=== PATIENT | female | born 1930 | race Caucasian/White ===

== ENCOUNTER 2017-01-04 17:33 | Observation (INO) | payer MEDICARE ==
[2017-01-04] MEDS ORDERED: Atrovent 0.5MG NEBULE IH ONE (17:53)
[2017-01-04] MEDS ORDERED: solu-MEDROL 125 MG IV ONE (17:53)
[2017-01-04] MEDS ORDERED: Levofloxacin 500MG/100ML D5W 500 MG/100 ML BAG IV STA (17:59)
[2017-01-04] MEDS ORDERED: Sodium Chloride 0.9% 1000 ML 1,000 ML IV SCH (18:00)
--- NOTE | 2017-01-04 18:06 | ERPHSYRPT ---
- History of Present Illness Time Seen by Provider: 01/04/17 17:45 Source: patient Exam Limitations: clinical condition Patient Subjective Stated Complaint: states having sob since last night with coughing. denies fever Triage Nursing Assessment: ambulated to room. some sob noted. resp shallow. nonprod cough Physician History: PATIENT WITH A HISTORY OF COPD, HOME OXYGEN DEPENDENT AT NIGHT COMPLAINS OF DIFFICULTY BREATHING, DYSPNEA AND A NONPRODUCTIVE COUGH AFTER EXPOSURE TO INSECT SPRAY OUTSIDE OF HER HOME YESTERDAY. DENIES FEVER, CHILLS, CHEST PAIN. Timing/Duration: yesterday Activities at Onset: other (INSECT SPRAY OUTSIDE OF HOME) Severity of Dyspnea-Max: severe Severity of Dyspnea-Current: severe Possible Cause: occasional episodes Modifying Factors: Improves With: coughing, oxygen Associated Symptoms: cough International travel in last 2 weeks: No Allergies/Adverse Reactions: acetaminophen [From Vicodin] Allergy (Verified 01/04/17 17:55) albuterol [From Proventil] Allergy (Verified 01/04/17 17:55) albuterol sulfate [From Proventil] Allergy (Verified 01/04/17 17:55) cephalexin monohydrate [From Keflex] Allergy (Verified 01/04/17 17:55) chlorpheniramine [From Triaminic] Allergy (Verified 01/04/17 17:55) chlorpheniramine maleate [From Triaminic] Allergy (Verified 01/04/17 17:55) codeine [Codeine] Allergy (Verified 01/04/17 17:55) dextromethorphan HBr [From Triaminic] Allergy (Verified 01/04/17 17:55) diphenhydramine HCl [From Triaminic] Allergy (Verified 01/04/17 17:55) gabapentin [From Neurontin] Allergy (Verified 01/04/17 17:55) hydrocodone bitartrate [From Vicodin] Allergy (Verified 01/04/17 17:55) phenylephrine HCl [From Triaminic] Allergy (Verified 01/04/17 17:55) phenylpropanolamine HCl [From Triaminic] Allergy (Verified 01/04/17 17:55) prednisone [From Deltasone] Allergy (Verified 01/04/17 17:55) probenecid [From Benemid] Allergy (Verified 01/04/17 17:55) xylometazoline HCl [From Triaminic] Allergy (Verified 01/04/17 17:55) Home Medications: Acetaminophen [Tylenol Extra Strength] 500 mg PO DAILY PRN PRN 06/23/12 [History ] Alprazolam 0.5 mg [xanAX 0.5 MG] 0.5 mg PO HS 06/23/12 [History] Budesonide/Formoterol Fumarate [Symbicort 80-4.5 Mcg Inhaler] 10.2 gm IH BID 23/07 [History] Clopidogrel Bisulfate 75 mg [PLAVIX 75 MG Tablet] 75 mg PO DAILY 06/23/12 [ History] Furosemide 20 mg PO BID 06/23/12 [History] Metoprolol Succinate 50 mg [Toprol Xl 50 MG] 50 mg PO BID 06/23/12 [History] Pantoprazole Sodium 40 mg PO DAILY 06/23/12 [History] Potassium Chloride [Klor-Con] 20 meq PO BID 06/23/12 [History] Ropinirole HCl [Requip] 0.25 mg PO TID 06/23/12 [History] Simvastatin 20Mg [Zocor 20Mg] 20 mg PO DAILY 06/23/12 [History] Ipratropium/Albuterol Sulfate [Combivent Respimat Inhal [place]] 4 gm IH DAILY 08/22 [History] Non-Formulary Drug [Non-Formulary Item] 1 ea IM WEEKLY 01/04/17 [History] Vits W-Ca,Fe,FA(<1Mg) [] 1 each PO DAILY 01/04/17 [History] Hx Tetanus, Diphtheria Vaccination/Date Given: Yes (2015) Hx Influenza Vaccination/Date Given: Yes Hx Pneumococcal Vaccination/Date Given: No - Review of Systems Constitutional: No Fever, No Chills Eyes: No Symptoms Ears, Nose, & Throat: No Symptoms Respiratory: Cough, Dyspnea, Dyspnea on Exertion (PARKER) Cardiac: No Symptoms, No Chest Pain, No Edema, No Syncope Abdominal/Gastrointestinal: No Symptoms, No Abdominal Pain, No Nausea, No Vomiting, No Diarrhea Genitourinary Symptoms: No Symptoms, No Dysuria Musculoskeletal: No Symptoms, No Back Pain, No Neck Pain Skin: No Rash Neurological: No Dizziness, No Focal Weakness, No Sensory Changes Psychological: No Symptoms Endocrine: No Symptoms All Other Systems: Reviewed and Negative - Past Medical History Pertinent Past Medical History: Yes ENT History: Cataracts Cardiac History: High Cholesterol, Hypertension, Peripheral Vascular Disease Respiratory History: COPD Musculoskeletal History: Arthritis GI Medical History: Diverticulosis, GERD, Gallbladder Disease, Hemorrhoids, Hernia Female Reproductive Disorders: Menstrual Problems - Past Surgical History Past Surgical History: Yes Cardiac: Vascular Surgery Gastrointestinal: Appendectomy, Cholecystectomy, Hemorrhoidectomy Female Surgical History: Hysterectomy Other Surgical History: "throat stretched because i get choked" - Social History Smoking Status: Former smoker How long have you smoked: 78 Exposure to second hand smoke: No Drug Use: none Patient Lives Alone: Yes - Female History Hx Now: No - Nursing Vital Signs Nursing Vital Signs: Initial Vital Signs Temperature 97.9 F Temperature Source Oral Pulse Rate 75 Respiratory Rate 22 Blood Pressure [] 150/71 Pain Intensity 3 - Physical Exam General Appearance: no apparent distress, mild distress, alert Eye Exam: PERRL/EOMI Neck Exam: normal inspection, supple Respiratory Exam: diminished breath sounds, prolonged expirations (TERMINAL EXPIRATORY WHEEZES) Cardiovascular/Chest Exam: normal heart sounds, regular rate/rhythm Abdominal/Gastrointestinal Exam: soft, No tenderness, No distention, No mass Extremity Exam: non-tender, normal range of motion, normal inspection, no calf tenderness, no pedal edema Peripheral Pulses Exam: carotid (R): 2+, carotid (L): 2+, femoral (R): 2+, femoral (L): 2+, dorsalis-pedis (R): 2+ Neurologic Exam: alert, oriented x 3, cooperative, forklift picker II-XII nml as tested, sensation nml, No motor deficits Skin Exam: normal color, warm, No dry SpO2 Interpretation: normal, hypoxic SpO2: 88 Oxygen Delivery: Room Air - Course EKG Interpreted by Me: RATE, Other (SINUS ARRHYTHMIA) - Radiology Exams Chest X-ray Interpretation: Interpreted by me, Negative, No Infiltrates Ordered Tests: Active Orders 24 hr Category Date Time Status Up With Assistance ROUTINE Activity 01/04/17 18:55 Active Admission/Status Order ROUTINE Care 01/04/17 18:56 Active Analog Circuit Designer STAT Care 01/04/17 17:53 Active Code Status Order ROUTINE Care 01/04/17 18:56 Active EKG-ER Only STAT Care 01/04/17 17:53 Active IV Care Q6H Care 01/04/17 18:56 Active IV Insertion STAT Care 01/04/17 17:53 Active Oxygen-ED Only NASAL CANNULA 3 lpm Care 01/04/17 18:07 Active Carlos Taylor ROUTINE Care 01/04/17 18:56 Active Telemetry ROUTINE Care 01/04/17 18:55 Active Vital Signs Q4H Care 01/04/17 18:55 Active Weight,Daily 0600 Care 01/04/17 18:56 Active Low Sodium Diet 01/04/17 Breakfast Active CHEST 1 VIEW (PORTABLE) Stat Exams 01/04/17 17:56 Taken ARTERIAL BLOOD GASES Stat Lab 01/04/17 18:54 Ordered BLOOD CULTURE Stat Lab 01/04/17 18:10 Received CBC W DIFF Stat Lab 01/04/17 18:05 Completed CMP Stat Lab 01/04/17 18:05 Completed D-DIMER QUANTITATION Stat Lab 01/04/17 18:05 Completed MAGNESIUM Stat Lab 01/04/17 18:05 Completed PROTIME WITH INR Stat Lab 01/04/17 18:05 Completed TROPONIN Stat Lab 01/04/17 18:05 Completed Oxygen NASAL CANNULA 2 lpm RT 01/04/17 18:55 Active Pulse Oximetry CONTINUOUS RT 01/04/17 18:57 Active Respiratory Nebulizer STAT RT 01/04/17 17:57 Completed Respiratory Nebulizer STAT RT 01/04/17 19:02 Active Transfer Order Routine Transfer 01/04/17 18:54 Ordered Medication Summary Generic Name Dose Route Start Last Admin Trade Name Freq PRN Reason Stop Dose Admin Acetaminophen 650 mg 01/04/17 18:59 Tylenol 325 Mg PO 02/03/17 18:58 Q4H PRN PRN PAIN AND/OR FEVER Enoxaparin Sodium 40 mg 01/05/17 10:00 Enoxaparin Sodium SQ 02/04/17 09:59 DAILY LISA Furosemide 20 mg 01/05/17 10:00 Lasix 20 Mg PO 02/04/17 09:59 BID DIURETIC LISA Sodium Chloride 1,000 mls @ 50 mls/hr 01/04/17 18:00 01/04/17 18:20 Sodium Chloride 0.9% 1000 Ml IV 02/03/17 17:59 100 mls/hr .Q20H LISA Administration Levofloxacin/Dextrose 500 mg in 100 mls @ 100 mls/hr 01/05/17 10:00 Levofloxacin 500mg/100ml D5w IV 02/04/17 09:59 Q24H10 LISA Ipratropium Rice 0.5 mg 01/04/17 19:01 Atrovent 0.5mg Nebule IH 02/03/17 19:00 Q2HPRN PRN DIFFICULTY BREATHING Metoprolol Succinate 50 mg 01/04/17 22:00 Toprol Xl 50 Mg PO 02/03/17 21:59 BID LISA Potassium Chloride 20 meq 01/04/17 22:00 Klor Con 10 Meq PO 02/03/17 21:59 BID LISA Discontinued Medications Generic Name Dose Route Start Last Admin Trade Name Freq PRN Reason Stop Dose Admin Levofloxacin/Dextrose 500 mg in 100 mls @ 100 mls/hr 01/04/17 17:59 01/04/17 18:24 Levofloxacin 500mg/100ml D5w IV 01/04/17 18:58 100 mls/hr STAT STA Administration Levofloxacin/Dextrose Confirm 01/04/17 18:15 Levofloxacin 500mg/100ml D5w Administered 01/04/17 18:16 Dose 500 mg in 100 mls @ ud IV .STK-MED ONE Ipratropium Rice 0.5 mg 01/04/17 17:53 01/04/17 17:59 Atrovent 0.5mg Nebule IH 01/04/17 17:54 0.5 mg STAT ONE Administration Methylprednisolone Sodium Succinate 125 mg 01/04/17 17:53 01/04/17 18:22 Solu-Medrol 125 Mg IV 01/04/17 17:54 Not Given STAT ONE Methylprednisolone Sodium Succinate Confirm 01/04/17 18:15 Solu-Medrol 125 Mg Administered 01/04/17 18:16 Dose 125 mg .ROUTE .STK-MED ONE Lab/Rad Data: Laboratory Result Diagrams 01/04/17 18:05 01/04/17 18:05 Laboratory Results 01/04/17 01/04/17 01/04/17 Range/Units 18:05 18:05 18:05 WBC 7.9 (4.0-10.5) K/mm3 RBC 4.11 (4.1-5.4) M/mm3 Hgb 12.8 (12.0-16.0) gm/dl Hct 41.2 (35-47) % MCV 100.2 H (78-100) fl MCH 31.1 (26-32) pg MCHC 31.1 L (32-36) g/dl RDW 13.2 (11.5-14.0) % Plt Count 196 (150-450) K/mm3 MPV 9.7 H (6-9.5) fl Gran % 64.0 (36.0-66.0) % Lymphocytes % 25.4 (24.0-44.0) % Monocytes % 8.4 (0.0-12.0) % Eosinophils % 1.8 (0.00-5.0) % Basophils % 0.4 (0.0-0.4) % Basophils # 0.03 (0-0.4) INR 0.97 (0.8-3.0) D-Dimer 1329.99 H* (0.00-500.00) ng/mL Sodium 144 (136-145) mEq/L Potassium 3.9 (3.5-5.1) mEq/L Chloride 101 (98-107) mEq/L Carbon Dioxide 38.3 H (21-32) mEq/L Anion Gap 8.9 (5-15) MEQ/L BUN 18 (9-20) mg/dL Creatinine 1.30 (0.55-1.30) mg/dl Estimated GFR 41 ML/MIN Glucose 112 H (70-110) MG/DL Calcium 9.4 (8.5-10.1) mg/dL Magnesium 2.2 (1.8-2.4) mg/dL Total Bilirubin 0.30 (0.2-1.0) mg/dL AST 28 (15-37) U/L ALT 30 (12-78) U/L Alkaline Phosphatase 90 (46-116) U/L Troponin I < 0.017 (0.000-0.056) ng/ml Serum Total Protein 7.6 (6.4-8.2) gm/dL Albumin 3.5 (3.4-5.0) g/dL - Progress Progress: improved (IV LEVAQUIN 500MG ) Progress Note: 01/04/17 18:05 PULSE OXIMETRY 97% AFTER 2 LITERS OF OXYGEN 01/04/17 18:43- THE [facility] 1329, UNABLE TO OBTAIN IV CHEST CT PE PROTOCOL DUE TO LOW GFR-41 01/04/17 19:07- WILL SCHEDULE V/Q SCAN FOR TOMORROW Blood Culture(s) Obtained: Yes Antibiotics given: Yes Discussed with : Clifford (DISCUSSED WITH CLIFFORD AT 1845 FOR ADMISSION) - Departure Time of Disposition: 19:00 Departure Disposition: Observation Clinical Impression: ACUTE EXACERBATION COPD Condition: Stable Critical Care Time: No Referrals: JONAS HORTON MD [Primary Care Provider] -
[2017-01-04] MEDS ORDERED: solu-MEDROL 125 MG ONE (18:15)
[2017-01-04] MEDS ORDERED: Levofloxacin 500MG/100ML D5W 500 MG/100 ML BAG IV ONE (18:15)
[2017-01-04 18:18] LABS: BASOPHIL % 0.4 % (0.0-0.4); Eosinophil % 1.8 % (0.00-5.0); Lymphocytes % 25.4 % (24.0-44.0); Mean Cell Volume 100.2 fl (78-100); Mean Corpuscular Hemoglobin 31.1 pg (26-32); Mean Platelet Volume 9.7 fl (6-9.5); Monocytes % 8.4 % (0.0-12.0); Platelet Count 196 K/mm3 (150-450); Red Blood Count 4.11 M/mm3 (4.1-5.4); Red Cell Distribution Width 13.2 % (11.5-14.0); White Blood Count 7.9 K/mm3 (4.0-10.5)
[2017-01-04 18:26] LABS: INR 0.97 (0.8-3.0); PROTIME 10.9 SECONDS (9.95-12.35)
[2017-01-04 18:37] LABS: ALBUMIN 3.5 g/dL (3.4-5.0); ALKALINE PHOSPHATASE 90 U/L (46-116); ANION GAP 8.9 MEQ/L (5-15); BLOOD UREA NITROGEN 18 mg/dL (9-20); CHLORIDE 101 mEq/L (98-107); Carbon Dioxide 38.3 mEq/L (21-32); Glucose 112 MG/DL (70-110); MAGNESIUM 2.2 mg/dL (1.8-2.4); Potassium 3.9 mEq/L (3.5-5.1); SGOT/AST 28 U/L (15-37); SGPT/ALT 30 U/L (12-78); SODIUM 144 mEq/L (136-145); Total Protein 7.6 gm/dL (6.4-8.2)
[2017-01-04 18:39] LABS: TROPONIN < 0.017 ng/ml (0.000-0.056)
[2017-01-04] MEDS ORDERED: TYLENOL 325 MG PO PRN (18:59)
[2017-01-04] MEDS ORDERED: Atrovent 0.5MG NEBULE IH PRN (19:01)
[2017-01-04] MEDS: Klor Con 10 MEQ PO SCH (21:37)
[2017-01-04] MEDS: Requip 0.5 MG PO SCH (21:37)
[2017-01-04] MEDS: Protonix 40MG Tablet PO SCH (21:38)
[2017-01-04] MEDS: Toprol Xl 50 MG PO SCH (21:38)
[2017-01-04] MEDS ORDERED: xanAX 0.5 MG PO SCH (22:00)
[2017-01-05] MEDS ORDERED: BUDESONIDE IH PRN (07:32)
[2017-01-05] MEDS ORDERED: TYLENOL EXTRA STRENGTH 500 MG PO PRN (07:32)
[2017-01-05] MEDS ORDERED: FORMOTEROL FUMARATE IH PRN (07:32)
[2017-01-05] MEDS ORDERED: [UNRECOGNIZED DRUG - OTHER] IH PRN (07:32)
[2017-01-05] MEDS ORDERED: [UNRECOGNIZED DRUG - OTHER] IM SCH (07:45)
[2017-01-05] MEDS ORDERED: Cyanocobalamin B-12 1000 MCG/ML IM PRN (07:46)
--- NOTE | 2017-01-05 08:33 | XRAY ---
Indication: Cough. Dyspnea. Comparison: April 23, 2009. Portable chest remains clear. Heart is not enlarged. Vascularity normal. Bony thorax intact. Impression: Stable nonacute chest.
[2017-01-05] MEDS ORDERED: IPRATROPIUM IH SCH (10:00)
[2017-01-05] MEDS ORDERED: THERAGRAN MULTIVITAMIN PO SCH (10:00)
[2017-01-05] MEDS ORDERED: PREVNAR 13 SYRINGE IM ONE (10:00)
[2017-01-05] MEDS ORDERED: LASIX 20 MG PO SCH (10:00)
[2017-01-05] MEDS ORDERED: PLAVIX 75 MG Tablet PO SCH (10:00)
[2017-01-05] MEDS ORDERED: NON-FORMULARY ITEM (Prenatal Vits W-Ca,Fe,Fa(<1mg) [Prenatal] 1 EACH) PO SCH (10:00)
[2017-01-05] MEDS ORDERED: ENOXAPARIN SODIUM SQ SCH (10:00)
[2017-01-05] MEDS ORDERED: ALBUTEROL SULFATE IH SCH (10:00)
[2017-01-05] MEDS ORDERED: COMBIVENT RESPIMAT COMMON CANISTER IH SCH (10:00)
[2017-01-05] MEDS ORDERED: ZOCOR 20MG PO SCH (10:00)
[2017-01-05] MEDS: Toprol Xl 50 MG PO SCH (10:06)
[2017-01-05] MEDS: Requip 0.5 MG PO SCH (10:06)
[2017-01-05] MEDS: Protonix 40MG Tablet PO SCH (10:06)
[2017-01-05] MEDS: Klor Con 10 MEQ PO SCH (10:06)
--- NOTE | 2017-01-05 10:13 | XRAY ---
Indication: Short of breath. COPD. Patient received 5.6 mCi technetium 99 microaggregated albumin for the perfusion portion. Patient inhaled approximately 39.9 mCi aerosolized technetium 99 DTPA. Multiplanar images obtained. Comparison: None Perfusion images demonstrates homogeneous radiopharmaceutical activity without focal segmental or subsegmental perfusion defects. Ventilation images demonstrates bilateral heterogeneous radiopharmaceutical activity with predominantly central activity favoring chronic obstructive disease. Impression: Nuclear medicine ventilation/perfusion scan negative for perfusion defects. Incidental chronic obstructive disease.
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
[2017-01-05 16:18] VITALS: BP 121/56; PULSE 75; O2SAT 90
[2017-01-05] MEDS ORDERED: Levofloxacin 500MG/100ML D5W 500 MG/100 ML BAG IV SCH (18:00)
[2017-01-05] MEDS ORDERED: Levaquin 250MG/50ML D5W 250 MG/50 ML BAG IV SCH (18:00)
== END 2017-01-05 16:10 | disposition home or self-care (01) ==
LOC: ED 17:33 → INTOOBSV 19:27 → MED SURG 19:27
PROVIDERS: ADMIT General Practice; ATTEND General Practice
DX: J44.1 Chronic obstructive pulmonary disease with (acute) exacerbation (principal); I10 Essential (primary) hypertension; I73.9 Peripheral vascular disease, unspecified; K21.9 Gastro-esophageal reflux disease without esophagitis; Z79.899 Other long term (current) drug therapy; T59.91XA Toxic effect of unspecified gases, fumes and vapors, accidental (unintentional), initial encounter; Y92.009 Unspecified place in unspecified non-institutional (private) residence as the place of occurrence of the external cause; Z23 Encounter for immunization
CPT/HCPCS: 36000; 36415; 71010; 78582; 80053; 83735; 84484; 85025; 85379; 85610; 87040; 90670; 93005; 93041; 93268; 94640; 94760; 96360; 96365; 99285; A9540; A9567; G0009; G0378; J1650; J1956; J2930; A9270-GY

== ENCOUNTER 2017-11-02 08:45 | Inpatient (IN) | payer MEDICARE ==
[2017-11-02 09:31] LABS: BASOPHIL % 0.1 % (0.0-0.4); Basophil (Absolute #) 0.01 (0-0.4); Eosinophil % 0.3 % (0.00-5.0); Eosinophil (Absolute #) 0.03 (0-0.5); Granulocyte Absolute (ANC) 9.75 (1.4-6.9); Granulocytes % 89.2 % (36.0-66.0); Hematocrit 46.3 % (35-47); Hemoglobin 14.6 gm/dl (12.0-16.0); Lymphocyte (Absolute #) 0.95 (1.0-4.6); Lymphocytes % 8.7 % (24.0-44.0); Mean Cell Volume 97.5 fl (78-100); Mean Corpuscular Hemoglobin 30.7 pg (26-32); Mean Corpuscular Hgb Concent. 31.5 g/dl (32-36); Mean Platelet Volume 9.6 fl (6-9.5); Monocyte (Absolute #) 0.19 (0.0-1.3); Monocytes % 1.7 % (0.0-12.0); Platelet Count 196 K/mm3 (150-450); Red Blood Count 4.75 M/mm3 (4.1-5.4); Red Cell Distribution Width 13.2 % (11.5-14.0); White Blood Count 10.9 K/mm3 (4.0-10.5)
[2017-11-02 09:32] LABS: ADD MANUAL DIFF? NO (NO)
[2017-11-02] MEDS ORDERED: DUONEB 0.5-3 MG/3 ml Neb IH (09:32)
[2017-11-02] MEDS: DUONEB 0.5-3 MG/3 ml Neb IH ×2 (09:34→23:59)
[2017-11-02 09:37] LABS: ALBUMIN 4.1 g/dL (3.5-5.0); ALKALINE PHOSPHATASE 113 U/L (38-126); ANION GAP 16.6 MEQ/L (5-15); BLOOD UREA NITROGEN 18 mg/dL (7-17); CHLORIDE 98 mmol/L (98-107); Calcium 9.4 mg/dL (8.4-10.2); Carbon Dioxide 32 mmol/L (22-30); Creatinine 1 1.07 mg/dL (0.52-1.04); EST GLOMERULAR FILTRATION RATE 52 ML/MIN; Glucose 121 mg/dL (74-106); Potassium 3.9 mmol/L (3.5-5.1); SGOT/AST 31 U/L (14-36); SGPT/ALT 23 U/L (0-35); SODIUM 143 mmol/L (137-145); Total Protein 7.3 g/dL (6.3-8.2)
[2017-11-02] MEDS ORDERED: Sodium Chloride 0.9% 1000 ML 1,000 ML (09:40)
[2017-11-02] MEDS ORDERED: TYLENOL EXTRA STRENGTH 500 MG (09:40)
[2017-11-02] MEDS ORDERED: solu-MEDROL 125 MG (09:40)
[2017-11-02] MEDS: Sodium Chloride 0.9% 1000 ML 1,000 ML IV ×6 (09:41→20:10)
[2017-11-02] MEDS: TYLENOL EXTRA STRENGTH 500 MG PO (09:42)
[2017-11-02] MEDS: solu-MEDROL 125 MG IV ×2 (09:42→17:40)
[2017-11-02 09:45] LABS: NT PRO BNP 220 pg/mL (0-1800)
[2017-11-02 09:49] LABS: Collection Type CATH
[2017-11-02 09:50] LABS: INFLUENZA A NEGATIVE (NEGATIVE)
[2017-11-02 09:50] LABS: ADD URINE CULTURE? YES (NO); Appearance CLEAR (CLEAR); Bacteria MODERATE /HPF (NEGATIVE); Bilirubin NEGATIVE (NEGATIVE); Blood 50 Ery/ul (0-5); COMPLETE URINE MICROSCOPIC? YES; Epithelial Cells FEW /HPF (FEW); Glucose NEGATIVE (NEGATIVE); INFLUENZA B NEGATIVE (NEGATIVE); Ketones NEGATIVE (NEGATIVE); Leukocyte Esterase NEGATIVE (NEGATIVE); Mucus SLIGHT /HPF (NEGATIVE); Nitrite NEGATIVE (NEGATIVE); Protein,Urine Dip TRACE (Negative); RESPIRATORY SYNCTIAL VIRUS NEGATIVE (Negative); Specific Gravity 1.015 (1.005-1.025); Urobilinogen NORMAL mg/dL (0-1)
[2017-11-02 09:53] LABS: Lactic Acid 2.3 (0.4-2.0)
[2017-11-02 09:57] LABS: TROPONIN 0.072 ng/mL (0.000-0.034)
[2017-11-02] MEDS ORDERED: LEVOFLOXACIN 750MG/150ML D5W 750 MG/150 ML BAG IV (12:59)
[2017-11-02 13:04] LABS: TROPONIN 0.177 ng/mL (0.000-0.034)
[2017-11-02] MEDS: LEVOFLOXACIN 750MG/150ML D5W 750 MG/150 ML BAG IV (13:04)
[2017-11-02] MEDS ORDERED: Zofran 4 MG/2 ML VIAL IV (14:37)
[2017-11-02 15:25] LABS: Lactic Acid 2.8 (0.4-2.0)
[2017-11-02 15:57] LABS: TROPONIN 0.121 ng/mL (0.000-0.034)
[2017-11-02] MEDS: TYLENOL 325 MG PO (16:03)
[2017-11-02] MEDS: PROVENTIL 2.5 MG/3 ML NEB IH ×2 (16:24→21:37)
[2017-11-02] MEDS ORDERED: BUDESONIDE IH (16:35)
[2017-11-02] MEDS ORDERED: FORMOTEROL FUMARATE IH (16:35)
[2017-11-02] MEDS ORDERED: TYLENOL EXTRA STRENGTH 500 MG PO (16:35)
[2017-11-02] MEDS ORDERED: [UNRECOGNIZED DRUG - OTHER] IH (16:35)
[2017-11-02] MEDS ORDERED: Advair Hfa 115/21 Common canister IH (16:42)
[2017-11-02] MEDS: LASIX 20 MG PO (17:39)
[2017-11-02 19:33] LABS: Lactic Acid 4.2 (0.4-2.0)
[2017-11-02 20:04] LABS: TROPONIN 0.069 ng/mL (0.000-0.034)
[2017-11-02] MEDS: Requip 0.5 MG PO (20:47)
[2017-11-02] MEDS: xanAX 0.5 MG PO (20:47)
[2017-11-02] MEDS: THERAGRAN MULTIVITAMIN PO (20:49)
[2017-11-02] MEDS: Protonix 40MG Tablet PO (20:51)
[2017-11-02] MEDS: Toprol Xl 50 MG PO (20:52)
[2017-11-02] MEDS: POTASSIUM CHLORIDE 20 MEQ POWDER FOR ORAL SOL PO (20:53)
[2017-11-02] MEDS ORDERED: NON-FORMULARY ITEM (Prenatal Vits W-Ca,Fe,Fa(<1mg) [Prenatal] 1 EACH) PO (22:00)
[2017-11-02] MEDS ORDERED: NON-FORMULARY ITEM (Ropinirole Hcl [Requip] 0.25 MG) PO (22:00)
[2017-11-02 22:13] LABS: Lactic Acid 3.2 (0.4-2.0)
[2017-11-02 22:56] LABS: TROPONIN 0.052 ng/mL (0.000-0.034)
[2017-11-03] MEDS: solu-MEDROL 125 MG IV ×5 (00:58→23:46)
[2017-11-03] MEDS: Sodium Chloride 0.9% 1000 ML 1,000 ML IV (02:51)
[2017-11-03 06:02] LABS: Granulocyte Absolute (ANC) 15.96 (1.4-6.9); Hematocrit 35.7 % (35-47); Hemoglobin 11.3 gm/dl (12.0-16.0); Mean Cell Volume 98.9 fl (78-100); Mean Corpuscular Hemoglobin 31.3 pg (26-32); Mean Corpuscular Hgb Concent. 31.7 g/dl (32-36); Mean Platelet Volume 9.6 fl (6-9.5); Platelet Count 164 K/mm3 (150-450); Red Blood Count 3.61 M/mm3 (4.1-5.4); Red Cell Distribution Width 13.4 % (11.5-14.0); White Blood Count 17.2 K/mm3 (4.0-10.5)
[2017-11-03 06:23] LABS: ADD MANUAL DIFF? YES (NO)
[2017-11-03 06:30] LABS: ALBUMIN 3.2 g/dL (3.5-5.0); ALKALINE PHOSPHATASE 68 U/L (38-126); BLOOD UREA NITROGEN 16 mg/dL (7-17); CHLORIDE 104 mmol/L (98-107); Carbon Dioxide 29 mmol/L (22-30); Creatinine 1 0.83 mg/dL (0.52-1.04); EST GLOMERULAR FILTRATION RATE > 60 ML/MIN; Glucose 173 mg/dL (74-106); SGOT/AST 23 U/L (14-36); SGPT/ALT 19 U/L (0-35); SODIUM 141 mmol/L (137-145); Total Protein 5.9 g/dL (6.3-8.2)
[2017-11-03 06:32] LABS: Potassium 3.7 mmol/L (3.5-5.1)
[2017-11-03 08:01] LABS: BAND 7 % (0.0-2.0); Lymphocytes 1 % (24-44); Neutrophils 92 % (36.0-66.0); Platelet Estimate NORMAL (NORMAL); Total Cells Counted 100
[2017-11-03] MEDS: PROVENTIL 2.5 MG/3 ML NEB IH ×4 (08:14→23:25)
[2017-11-03] MEDS: Protonix 40MG Tablet PO ×2 (10:38→21:17)
[2017-11-03] MEDS: LASIX 20 MG PO ×2 (10:38→16:31)
[2017-11-03] MEDS: THERAGRAN MULTIVITAMIN PO ×2 (10:38→21:17)
[2017-11-03] MEDS: Requip 0.5 MG PO ×3 (10:38→21:16)
[2017-11-03] MEDS: Toprol Xl 50 MG PO ×2 (10:39→21:16)
[2017-11-03] MEDS: Klor Con 10 MEQ PO ×2 (11:12→21:17)
[2017-11-03] MEDS: PLAVIX 75 MG Tablet PO ×2 (11:13→16:39)
[2017-11-03] MEDS: Tums EX 750 MG PO ×2 (18:25→22:35)
[2017-11-03] MEDS: TYLENOL 325 MG PO (18:29)
[2017-11-03] MEDS: xanAX 0.5 MG PO (22:34)
[2017-11-04] MEDS: PROVENTIL 2.5 MG/3 ML NEB IH ×2 (03:38→07:36)
[2017-11-04] MEDS: solu-MEDROL 125 MG IV (05:46)
[2017-11-04] MEDS: LEVOFLOXACIN 750MG/150ML D5W 750 MG/150 ML BAG IV (09:01)
[2017-11-04] MEDS: LASIX 20 MG PO (09:04)
[2017-11-04] MEDS: PLAVIX 75 MG Tablet PO (09:04)
[2017-11-04] MEDS: Requip 0.5 MG PO (09:04)
[2017-11-04] MEDS: THERAGRAN MULTIVITAMIN PO (09:04)
[2017-11-04] MEDS: Klor Con 10 MEQ PO (09:04)
[2017-11-04] MEDS: Toprol Xl 50 MG PO (09:04)
[2017-11-04] MEDS: Protonix 40MG Tablet PO (09:04)
== END 2017-11-04 10:24 | disposition home or self-care (01) ==
LOC: ED 08:45 → MED SURG 14:08
PROVIDERS: General Practice
CPT/HCPCS: 36000; 36415; 71045; 71260; 80053; 81000; 83605; 83880; 84484; 85025; 85379; 87040; 87086; 87631; 93005; 93041; 96374; J1956; J2930; P9612

== ENCOUNTER 2019-08-17 16:29 | Emergency (ER) | payer MEDICARE ==
[2019-08-17] MEDS ORDERED: TYLENOL 325 MG PO ONE (16:52)
--- NOTE | 2019-08-17 16:53 | ERPHSYRPT ---
- History of Present Illness Time Seen by Provider: 08/17/19 16:50 Source: patient Exam Limitations: no limitations Patient Subjective Stated Complaint: Pt states "I do not feel well. Early this morning I started to have body aches and I am just so cold." Triage Nursing Assessment: Pt presented alert and oriented X 3, skin pwd. PT ambulates with a slow gait assist X 1. Pt in no apparent respiratory distress. Physician History: The patient is an 88-year-old female who presents with a chief complaint not feeling well. Onset reportedly was yesterday. Today, she started she experienced a subjective fever in addition 2 generalized weakness. On review of symptoms, she endorses having some crampy abdominal pain and pointing to her epigastric region. the patient denied nausea, vomiting, cough, shortness of breath, chest pain, diarrhea and constipation. She denies symptoms consistent with a UTI. She reportedly has not taken any Tylenol or ibuprofen prior to arrival to the emergency department. She has no other complaints at this time. Allergies/Adverse Reactions: cephalexin monohydrate [From Keflex] Allergy (Verified 11/02/17 09:28) chlorpheniramine [From Triaminic] Allergy (Verified 11/02/17 09:28) chlorpheniramine maleate [From Triaminic] Allergy (Verified 11/02/17 09:28) codeine [Codeine] Allergy (Verified 11/02/17 09:28) dextromethorphan HBr [From Triaminic] Allergy (Verified 11/02/17 09:28) diphenhydramine HCl [From Triaminic] Allergy (Verified 11/02/17 09:28) gabapentin [From Neurontin] Allergy (Verified 11/02/17 09:28) hydrocodone bitartrate [From Vicodin] Allergy (Verified 11/02/17 09:28) phenylephrine HCl [From Triaminic] Allergy (Verified 11/02/17 09:28) phenylpropanolamine HCl [From Triaminic] Allergy (Verified 11/02/17 09:28) prednisone [From Deltasone] Allergy (Verified 11/02/17 09:28) probenecid [From Benemid] Allergy (Verified 11/02/17 09:28) xylometazoline HCl [From Triaminic] Allergy (Verified 11/02/17 09:28) Home Medications: Alprazolam 0.5 mg [xanAX 0.5 MG] 0.5 mg PO HS 06/23/12 [History] Budesonide/Formoterol Fumarate [Symbicort 80-4.5 Mcg Inhaler] 10.2 gm IH BID PRN PRN 06/23/12 [History] Clopidogrel Bisulfate 75 mg [PLAVIX 75 MG Tablet] 75 mg PO DAILY 06/23/12 [History] Pantoprazole Sodium 40 mg PO BID 06/23/12 [History] Potassium Chloride [Klor-Con] 20 meq PO BID 06/23/12 [History] Ropinirole HCl [Requip] 0.25 mg PO TID 06/23/12 [History] Vits W-Ca,Fe,FA(<1Mg) [] 1 each PO BID 01/04/17 [History] Cilostazol 100 mg [Pletal 100 MG] 100 mg PO DAILY 08/17/19 [History] carvediloL [Carvedilol] 6.25 mg PO DAILY 08/17/19 [History] Hx Tetanus, Diphtheria Vaccination/Date Given: No Hx Influenza Vaccination/Date Given: Yes Hx Pneumococcal Vaccination/Date Given: No Immunizations Up to Date: Yes - Review of Systems Constitutional: Fever, Fatigue, Weakness Eyes: No Symptoms Ears, Nose, & Throat: No Symptoms Respiratory: Cough, No Cyanosis, No Dyspnea, No Dyspnea on Exertion (PARKER) Cardiac: No Chest Pain, No Edema, No Palpitations, No Syncope, No Orthopnea Abdominal/Gastrointestinal: Abdominal Pain, No Nausea, No Vomiting, No Constipation Genitourinary Symptoms: No Dysuria, No Frequency, No Hematuria, No Urgency, No Vaginal Bleeding Musculoskeletal: No Symptoms Skin: No Symptoms Neurological: No Symptoms Hematologic/Lymphatic: No Symptoms Immunological/Allergic: No Symptoms All Other Systems: Reviewed and Negative - Past Medical History Pertinent Past Medical History: Yes ENT History: Cataracts Cardiac History: High Cholesterol, Hypertension, Peripheral Vascular Disease Respiratory History: COPD, Pneumonia Endocrine Medical History: No Pertinent History Musculoskeletal History: Arthritis GI Medical History: Diverticulosis, GERD, Gallbladder Disease, Hemorrhoids, Hernia History: No Pertinent History Psycho-Social History: Anxiety, Depression Female Reproductive Disorders: No Pertinent History, Menstrual Problems Other Medical History: ectopic - Past Surgical History Past Surgical History: Yes Cardiac: Vascular Surgery Gastrointestinal: Appendectomy, Cholecystectomy, Hemorrhoidectomy Female Surgical History: Hysterectomy Other Surgical History: "throat stretched because i get choked" - Social History Smoking Status: Former smoker How long have you smoked: 50 Exposure to second hand smoke: Yes Drug Use: none Patient Lives Alone: No - Female History Hx Now: No - Nursing Vital Signs Nursing Vital Signs: Initial Vital Signs Temperature 101.2 F 08/17/19 16:39 Pulse Rate 92 H 08/17/19 16:39 Respiratory Rate 08/17/19 16:39 Blood Pressure 164/69 08/17/19 16:39 O2 Sat by Pulse Oximetry 93 L 08/17/19 16:39 Pain Scale Pain Intensity 0 - Physical Exam General Appearance: no apparent distress, alert Eye Exam: PERRL/EOMI, eyes nml inspection Ears, Nose, Throat Exam: normal ENT inspection, No pharynx normal, No TM abnormal (L), No pharyngeal erythema, No tonsillar exudate Neck Exam: normal inspection Respiratory Exam: normal breath sounds, crackles/rales, other (Fine inspiratory crackles noted to the right base remaining lung sounds were clear), No chest tenderness, No respiratory distress Cardiovascular Exam: regular rate/rhythm, normal heart sounds, normal peripheral pulses, capillary refill <2 sec Gastrointestinal/Abdomen Exam: soft, tenderness (RLQ tenderness), distention Rectal Exam: deferred Extremity Exam: normal inspection Neurologic Exam: alert, oriented x 3, cooperative Skin Exam: normal color, warm, dry, No rash, No petechiae, No jaundice SpO2 Interpretation: normal SpO2: 93 O2 Delivery: Room Air - Course Nursing assessment & vital signs reviewed: Yes EKG Interpreted by Me: RATE (Normal sinus rhythm, vent rate 90 bpm, 84 bpm, HI interval 142 ms, QRS duration 86 ms, QT/QTc 352/431 ms, no evidence of acute myocardial ischemia or injury), Sinus Rhythm - Radiology Exams Chest X-ray Interpretation: Interpreted by me, Reviewed by me, Negative - CT Exams Abdomen/Pelvis CT Interpretation: Other (Small hiatal hernia, colonic diverticulosis without diverticulitis, multiple tiney cetrilobular nodules tree-in-bud opacitis likely infectious in origin) Ordered Tests: Active Orders 24 hr Category Date Time Status EKG-ER Only STAT Care 08/17/19 17:54 Active IV Insertion STAT Care 08/17/19 17:54 Active ABDOMEN AND PELVIS W CONTRAST [CT] Stat Exams 08/17/19 17:56 Taken CHEST 2 VIEWS (PA AND LAT) Stat Exams 08/17/19 16:51 Completed BMP Stat Lab 08/17/19 18:12 Completed CBC W DIFF Stat Lab 08/17/19 18:12 Completed CULTURE,URINE Stat Lab 08/17/19 18:50 Received Hepatic Function Panel Stat Lab 08/17/19 18:12 Completed LIPASE Stat Lab 08/17/19 18:12 Completed Lactic Acid Stat Lab 08/17/19 18:09 Completed TROPONIN Stat Lab 08/17/19 18:12 Completed UA W/RFX UR CULTURE Stat Lab 08/17/19 18:50 Completed Incentive Spirometry UD RT 08/17/19 21:41 Active Respiratory Therapy Assessment DAILY RT 08/17/19 21:42 Active Medication Summary Discontinued Medications Generic Name Dose Route Start Last Admin Trade Name Freq PRN Reason Stop Dose Admin Acetaminophen 975 mg 08/17/19 16:52 08/17/19 17:08 Tylenol 325 Mg PO 08/17/19 16:53 975 mg STAT ONE Administration Acetaminophen Confirm 08/17/19 17:07 Tylenol 325 Mg Administered 08/17/19 17:08 Dose 975 mg .ROUTE .STK-MED ONE Levofloxacin 750 mg 08/18/19 21:17 08/17/19 21:29 Levofloxacin 500 Mg Tablet PO 08/18/19 21:18 750 mg STAT ONE Administration Levofloxacin Confirm 08/17/19 21:25 Levofloxacin 500 Mg Tablet Administered 08/17/19 21:26 Dose 1,000 mg .ROUTE .STK-MED ONE Lab/Rad Data: Laboratory Result Diagrams 08/17/19 18:12 08/17/19 18:12 Laboratory Results 08/17/19 08/17/19 08/17/19 Range/Units 18:50 18:12 18:12 WBC 12.7 H (4.0-10.5) K/mm3 RBC 3.93 L (4.1-5.4) M/mm3 Hgb 12.3 (12.0-16.0) gm/dl Hct 38.7 (35-47) % MCV 98.5 (78-100) fl MCH 31.3 (26-32) pg MCHC 31.8 L (32-36) g/dl RDW 13.9 (11.5-14.0) % Plt Count 205 (150-450) K/mm3 MPV 9.1 (7.5-11.0) fl Gran % 78.4 H (36.0-66.0) % Eos # (Auto) 0.08 (0-0.5) Absolute Lymphs (auto) 1.68 (1.0-4.6) Absolute Monos (auto) 0.96 (0.0-1.3) Lymphocytes % 13.2 L (24.0-44.0) % Monocytes % 7.6 (0.0-12.0) % Eosinophils % 0.6 (0.00-5.0) % Basophils % 0.2 (0.0-0.4) % Absolute Granulocytes 9.95 H (1.4-6.9) Basophils # 0.03 (0-0.4) Sodium 139 (137-145) mmol/L Potassium 4.0 (3.5-5.1) mmol/L Chloride 100 (98-107) mmol/L Carbon Dioxide 34 H (22-30) mmol/L Anion Gap 9.2 (5-15) MEQ/L BUN 16 (7-17) mg/dL Creatinine 0.85 (0.52-1.04) mg/dL Estimated GFR > 60.0 ML/MIN Glucose 112 H (74-106) mg/dL Lactic Acid (0.4-2.0) Calcium 9.9 (8.4-10.2) mg/dL Total Bilirubin 0.60 (0.2-1.3) mg/dL Direct Bilirubin 0.2 (0.0-0.4) mg/dL AST 38 H (14-36) U/L ALT 24 (0-35) U/L Alkaline Phosphatase 87 (38-126) U/L Troponin I < 0.012 (0.000-0.034) ng/mL Serum Total Protein 7.2 (6.3-8.2) g/dL Albumin 4.0 (3.5-5.0) g/dL Lipase 34 (23-300) U/L Urine Color YELLOW (YELLOW) Urine Appearance SLIGHTLY CLOUDY (CLEAR) Urine pH 7.0 (5-6) Ur Specific [place] 1.017 (1.005-1.025) Urine Protein NEGATIVE (Negative) Urine Ketones NEGATIVE (NEGATIVE) Urine Blood NEGATIVE (0-5) Jostin/ul Urine Nitrite NEGATIVE (NEGATIVE) Urine Bilirubin NEGATIVE (NEGATIVE) Urine Urobilinogen 2 (0-1) mg/dL Ur Leukocyte Esterase NEGATIVE (NEGATIVE) Urine WBC (Auto) 0-2 (0-5) /HPF Urine RBC (Auto) NONE (0-2) /HPF U Epithel Cells (Auto) NONE (FEW) /HPF Urine Bacteria (Auto) NONE SEEN (NEGATIVE) /HPF Urine Mucus (Auto) SLIGHT (NEGATIVE) /HPF Urine Culture Reflexed ORDERED SEPARATELY (NO) Urine Glucose NEGATIVE (NEGATIVE) mg/dL Influenza Type A Ag (NEGATIVE) Influenza Type B Ag (NEGATIVE) RSV (PCR) (Negative) 08/17/19 08/17/19 Range/Units 18:09 16:58 WBC (4.0-10.5) K/mm3 RBC (4.1-5.4) M/mm3 Hgb (12.0-16.0) gm/dl Hct (35-47) % MCV (78-100) fl MCH (26-32) pg MCHC (32-36) g/dl RDW (11.5-14.0) % Plt Count (150-450) K/mm3 MPV (7.5-11.0) fl Gran % (36.0-66.0) % Eos # (Auto) (0-0.5) Absolute Lymphs (auto) (1.0-4.6) Absolute Monos (auto) (0.0-1.3) Lymphocytes % (24.0-44.0) % Monocytes % (0.0-12.0) % Eosinophils % (0.00-5.0) % Basophils % (0.0-0.4) % Absolute Granulocytes (1.4-6.9) Basophils # (0-0.4) Sodium (137-145) mmol/L Potassium (3.5-5.1) mmol/L Chloride (98-107) mmol/L Carbon Dioxide (22-30) mmol/L Anion Gap (5-15) MEQ/L BUN (7-17) mg/dL Creatinine (0.52-1.04) mg/dL Estimated GFR ML/MIN Glucose (74-106) mg/dL Lactic Acid 0.7 (0.4-2.0) Calcium (8.4-10.2) mg/dL Total Bilirubin (0.2-1.3) mg/dL Direct Bilirubin (0.0-0.4) mg/dL AST (14-36) U/L ALT (0-35) U/L Alkaline Phosphatase (38-126) U/L Troponin I (0.000-0.034) ng/mL Serum Total Protein (6.3-8.2) g/dL Albumin (3.5-5.0) g/dL Lipase (23-300) U/L Urine Color (YELLOW) Urine Appearance (CLEAR) Urine pH (5-6) Ur Specific [place] (1.005-1.025) Urine Protein (Negative) Urine Ketones (NEGATIVE) Urine Blood (0-5) Jostin/ul Urine Nitrite (NEGATIVE) Urine Bilirubin (NEGATIVE) Urine Urobilinogen (0-1) mg/dL Ur Leukocyte Esterase (NEGATIVE) Urine WBC (Auto) (0-5) /HPF Urine RBC (Auto) (0-2) /HPF U Epithel Cells (Auto) (FEW) /HPF Urine Bacteria (Auto) (NEGATIVE) /HPF Urine Mucus (Auto) (NEGATIVE) /HPF Urine Culture Reflexed (NO) Urine Glucose (NEGATIVE) mg/dL Influenza Type A Ag NEGATIVE (NEGATIVE) Influenza Type B Ag NEGATIVE (NEGATIVE) RSV (PCR) NEGATIVE (Negative) - Progress Progress: improved Counseled pt/family regarding: lab results, diagnosis, need for follow-up, rad results - Departure Departure Disposition: Home Clinical Impression: Community acquired pneumonia, Fever Condition: Stable Critical Care Time: No Referrals: JONAS HORTON MD [Primary Care Provider] - Instructions: Pneumonia, Adult (DC), Fever, Adult (DC) Plan of Treatment: nontoxic in appearance. The patient had no hypoxia and is currently on her home O2 since supplemental oxygen which he uses at night. She had no increased work of breathing and her fever and symptoms resolved after being treated with Tylenol. Her workup was relatively benign with the exception of CT evidence of possible bilateral pneumonia which really in by the parents on his CT scan which may be the source of her fever. Given her drug allergies, lightheaded and decided to treat with levofloxacin and [facility] She was sent home with a prescription for levofloxacin to take for 4 more days. She reports that she has a followup appointment scheduled with her primary care provider this coming Sunday. Encouraged her to keep this appointment for further evaluation and management. she is instructed to return to the emergency department if her symptoms were to become worse to include shortness of breath, chest pain, nausea, vomiting or inability to tolerate her antibiotic. She agreed with him verbally understood the discharge plan. Prescriptions: Albuterol 8 gm Mdi Hfa [Ventolin Hfa MDI] 90 mcg IH Q4H PRN #1 [email or web address] PRN Reason: Shortness Of Breath Levofloxacin 750 mg PO DAILY 4 Days #4 tablet
[2019-08-17] MEDS ORDERED: TYLENOL 325 MG ONE (17:07)
[2019-08-17 17:33] LABS: INFLUENZA A NEGATIVE (NEGATIVE); INFLUENZA B NEGATIVE (NEGATIVE); RESPIRATORY SYNCTIAL VIRUS NEGATIVE (Negative)
[2019-08-17 18:15] LABS: Absolute Neutrophil Ct (ANC) 9.95 (1.4-6.9); BASOPHIL % 0.2 % (0.0-0.4); Basophil (Absolute #) 0.03 (0-0.4); Eosinophil % 0.6 % (0.00-5.0); Eosinophil (Absolute #) 0.08 (0-0.5); Hematocrit 38.7 % (35-47); Hemoglobin 12.3 gm/dl (12.0-16.0); Lymphocyte (Absolute #) 1.68 (1.0-4.6); Lymphocytes % 13.2 % (24.0-44.0); Mean Cell Volume 98.5 fl (78-100); Mean Corpuscular Hemoglobin 31.3 pg (26-32); Mean Corpuscular Hgb Concent. 31.8 g/dl (32-36); Mean Platelet Volume 9.1 fl (7.5-11.0); Monocyte (Absolute #) 0.96 (0.0-1.3); Monocytes % 7.6 % (0.0-12.0); Neutrophil % 78.4 % (36.0-66.0); Platelet Count 205 K/mm3 (150-450); Red Blood Count 3.93 M/mm3 (4.1-5.4); Red Cell Distribution Width 13.9 % (11.5-14.0); White Blood Count 12.7 K/mm3 (4.0-10.5)
[2019-08-17 18:38] LABS: ALKALINE PHOSPHATASE 87 U/L (38-126); ANION GAP 9.2 MEQ/L (5-15); BLOOD UREA NITROGEN 16 mg/dL (7-17); CHLORIDE 100 mmol/L (98-107); Calcium 9.9 mg/dL (8.4-10.2); Carbon Dioxide 34 mmol/L (22-30); Creatinine 1 0.85 mg/dL (0.52-1.04); Direct Bilirubin 0.2 mg/dL (0.0-0.4); Glucose 112 mg/dL (74-106); LIPASE 34 U/L (23-300); SGOT/AST 38 U/L (14-36); SGPT/ALT 24 U/L (0-35); SODIUM 139 mmol/L (137-145); Total Protein 7.2 g/dL (6.3-8.2)
[2019-08-17 18:39] LABS: TROPONIN < 0.012 ng/mL (0.000-0.034)
[2019-08-17 18:57] LABS: Appearance SLIGHTLY CLOUDY (CLEAR); Bilirubin NEGATIVE (NEGATIVE); Blood NEGATIVE Ery/ul (0-5); Glucose NEGATIVE (NEGATIVE); Ketones NEGATIVE (NEGATIVE); Leukocyte Esterase NEGATIVE (NEGATIVE); Mucus SLIGHT /HPF (NEGATIVE); Nitrite NEGATIVE (NEGATIVE); Protein,Urine Dip NEGATIVE (Negative); Specific Gravity 1.017 (1.005-1.025); Urobilinogen 2 mg/dL (0-1); WBC 0-2 /HPF (0-5)
[2019-08-17 18:59] LABS: Bacteria NONE SEEN /HPF (NEGATIVE)
--- NOTE | 2019-08-17 19:14 | XRAY ---
Indication: Cough and fatigue. Comparison: November 12, 2017. PA/lateral chest is now clear. Heart and mediastinal structures within normal limits. Bony thorax intact with minimal degenerative changes.
[2019-08-17 20:05] VITALS: BP 120/63; PULSE 77
[2019-08-17 20:22] VITALS: O2SAT 93
[2019-08-17] MEDS ORDERED: Levofloxacin 500 MG Tablet ONE (21:25)
--- NOTE | 2019-08-18 09:08 | XRAY ---
Indication: Weakness 1 day. Right lower quadrant pain/tenderness with palpation. Elevated WBC. Multiple contiguous axial images obtained through the abdomen and pelvis using 80 cc Isovue 370 contrast only. Comparison: November 17, 2009. Lung bases demonstrates minimal bilateral [id number] opacities favoring underlying pneumonitis. No consolidation/effusion. Heart is not enlarged. Stable small hiatal hernia. Noncontrasted stomach and bowel loops appear nonobstructed. Again the duodenal jejunal junction is not seen left of midline and the colon is predominantly left hemiabdomen favoring congenital malrotation. There is again mild scattered colonic fecal debris and colonic diverticulosis. Cholecystectomy, appendectomy, and hysterectomy reported. No free fluid/air. Stable splenic calcified granulomas. Remaining liver, pancreas, spleen, adrenal glands, kidneys, ureters, and bladder appear unremarkable. Again mild scattered aortoiliac calcifications. No AAA or pathologic retroperitoneal lymphadenopathy. Osseous structures intact with mild osteopenia and mild degenerative changes throughout the thoracolumbar spine. Impression: Impression: 1. Bibasilar pulmonary [id number] opacities favoring pneumonitis. 2. Stable congenital gastrointestinal malrotation. 3. Again incidental small hiatal hernia, fecal stasis, and colonic diverticulosis. Comment: Preliminary interpretation was made by C. No critical discrepancy.
[2019-08-18] MEDS ORDERED: Levofloxacin 500 MG Tablet PO ONE (21:17)
== END 2019-08-17 21:45 | disposition home or self-care (01) ==
LOC: ED 16:29
DX: J18.9 Pneumonia, unspecified organism (principal); R50.9 Fever, unspecified; R10.13 Epigastric pain; Z79.899 Other long term (current) drug therapy
CPT/HCPCS: 36000; 36415; 71046; 74177; 80048; 80076; 81001; 83605; 83690; 84484; 85025; 87086; 87631; 93005; 99284; A9270-GY

== ENCOUNTER 2019-10-05 17:07 | Emergency (ER) | payer MEDICARE ==
[2019-10-05 19:13] VITALS: O2SAT 97
[2019-10-05 20:19] LABS: Absolute Neutrophil Ct (ANC) 10.45 (1.4-6.9); BASOPHIL % 0.2 % (0.0-0.4); Basophil (Absolute #) 0.03 (0-0.4); Eosinophil % 0.4 % (0.00-5.0); Eosinophil (Absolute #) 0.05 (0-0.5); Hematocrit 36.9 % (35-47); Hemoglobin 11.4 gm/dl (12.0-16.0); Lymphocyte (Absolute #) 2.46 (1.0-4.6); Lymphocytes % 17.4 % (24.0-44.0); Mean Cell Volume 99.7 fl (78-100); Mean Corpuscular Hemoglobin 30.8 pg (26-32); Mean Corpuscular Hgb Concent. 30.9 g/dl (32-36); Mean Platelet Volume 9.7 fl (7.5-11.0); Monocyte (Absolute #) 1.12 (0.0-1.3); Monocytes % 7.9 % (0.0-12.0); Neutrophil % 74.1 % (36.0-66.0); Platelet Count 194 K/mm3 (150-450); Red Cell Distribution Width 14.5 % (11.5-14.0); White Blood Count 14.1 K/mm3 (4.0-10.5)
[2019-10-05 20:21] LABS: INFLUENZA A NEGATIVE (NEGATIVE); INFLUENZA B NEGATIVE (NEGATIVE); RESPIRATORY SYNCTIAL VIRUS NEGATIVE (Negative)
[2019-10-05 20:23] LABS: ALBUMIN 3.7 g/dL (3.5-5.0); ANION GAP 8.9 MEQ/L (5-15); BILIRUBIN,TOTAL 0.8 mg/dL (0.2-1.3); Calcium 8.8 mg/dL (8.4-10.2); Creatinine 1 0.99 mg/dL (0.52-1.04); Potassium 3.8 mmol/L (3.5-5.1); Total Protein 6.8 g/dL (6.3-8.2)
[2019-10-05] MEDS ORDERED: Vibramycin 100 MG ONE (22:37)
[2019-10-05] MEDS ORDERED: Levofloxacin 500 MG Tablet ONE ×2 (22:39→23:03)
[2019-10-05] MEDS ORDERED: Levofloxacin 250MG Tablet PO ONE (22:48)
[2019-10-05 22:57] LABS: Appearance CLEAR (CLEAR); Bilirubin NEGATIVE (NEGATIVE); Blood NEGATIVE Ery/ul (0-5); Glucose NEGATIVE (NEGATIVE); Ketones NEGATIVE (NEGATIVE); Leukocyte Esterase NEGATIVE (NEGATIVE); Mucus SLIGHT /HPF (NEGATIVE); Nitrite NEGATIVE (NEGATIVE); Protein,Urine Dip NEGATIVE (Negative); Specific Gravity 1.008 (1.005-1.025); Urobilinogen NEGATIVE mg/dL (0-1)
--- NOTE | 2019-10-05 23:05 | ERPHSYRPT ---
- History of Present Illness Time Seen by Provider: 10/05/19 18:20 Source: patient Patient Subjective Stated Complaint: "I had a recent pneumonia in august and symptoms back again last night" Triage Nursing Assessment: aaox3, color fair, patient weak, c/o feeling very sleepy, fever off and on, afebrile at this time, feeling very short of breath especially with any type of exertion. occasional non productive cough. Physician History: Patient is an 88-year-old female presents to our ED with complaints of fever and generalized weakness. Patient has been coughing. Patient has a history of pneumonia and feels that her symptoms are the same. No chest pain. No nausea vomiting or diaphoresis. Symptoms are mild to moderate intensity. No specific worsening improving factors. Daughter at bedside. They voiced no other complaints at this time. Timing/Duration: yesterday Possible Cause: no prior episodes Modifying Factors: Improves With: activity Associated Symptoms: fever, chills, cough, No wheezing Allergies/Adverse Reactions: cephalexin monohydrate [From Keflex] Allergy (Verified 10/05/19 18:10) chlorpheniramine [From Triaminic] Allergy (Verified 10/05/19 18:10) chlorpheniramine maleate [From Triaminic] Allergy (Verified 10/05/19 18:10) codeine [Codeine] Allergy (Verified 10/05/19 18:10) dextromethorphan HBr [From Triaminic] Allergy (Verified 10/05/19 18:10) diphenhydramine HCl [From Triaminic] Allergy (Verified 10/05/19 18:10) gabapentin [From Neurontin] Allergy (Verified 10/05/19 18:10) hydrocodone bitartrate [From Vicodin] Allergy (Verified 10/05/19 18:10) phenylephrine HCl [From Triaminic] Allergy (Verified 10/05/19 18:10) phenylpropanolamine HCl [From Triaminic] Allergy (Verified 10/05/19 18:10) prednisone [From Deltasone] Allergy (Verified 10/05/19 18:10) probenecid [From Benemid] Allergy (Verified 10/05/19 18:10) xylometazoline HCl [From Triaminic] Allergy (Verified 10/05/19 18:10) Home Medications: Alprazolam 0.5 mg [xanAX 0.5 MG] 0.5 mg PO BID 06/23/12 [History] Pantoprazole Sodium 40 mg PO BID 06/23/12 [History] Potassium Chloride [Klor-Con] 20 meq PO BID 06/23/12 [History] Ropinirole HCl [Requip] 0.5 mg PO BID 06/23/12 [History] Vits W-Ca,Fe,FA(<1Mg) [] 1 each PO BID 01/04/17 [History] carvediloL [Carvedilol] 6.25 mg PO BID 08/17/19 [History] Atorvastatin Calcium [Lipitor] 40 mg PO DAILY 10/05/19 [History] Cilostazol 100 mg [Pletal 100 MG] 100 mg PO BID 10/05/19 [History] Furosemide 20 mg [Lasix 20 mg] 20 mg PO BID 10/05/19 [History] Hx Tetanus, Diphtheria Vaccination/Date Given: No Hx Influenza Vaccination/Date Given: Yes Hx Pneumococcal Vaccination/Date Given: No - Review of Systems Constitutional: Fever, Chills Eyes: No Symptoms Ears, Nose, & Throat: No Symptoms Respiratory: Cough, No Dyspnea Cardiac: No Chest Pain, No Edema, No Syncope Abdominal/Gastrointestinal: No Abdominal Pain, No Nausea, No Vomiting, No Diarrhea Genitourinary Symptoms: No Dysuria Musculoskeletal: No Symptoms, No Back Pain, No Neck Pain Skin: No Rash Neurological: No Symptoms, No Dizziness, No Focal Weakness, No Sensory Changes Psychological: No Symptoms Endocrine: No Symptoms All Other Systems: Reviewed and Negative - Past Medical History Pertinent Past Medical History: Yes ENT History: Cataracts Cardiac History: High Cholesterol, Hypertension, Peripheral Vascular Disease Respiratory History: COPD, Pneumonia Endocrine Medical History: No Pertinent History Musculoskeletal History: Arthritis GI Medical History: Diverticulosis, GERD, Gallbladder Disease, Hemorrhoids, Hernia History: No Pertinent History Psycho-Social History: Anxiety, Depression Female Reproductive Disorders: No Pertinent History, Menstrual Problems Other Medical History: ectopic - Past Surgical History Past Surgical History: Yes Cardiac: Vascular Surgery Gastrointestinal: Appendectomy, Cholecystectomy, Hemorrhoidectomy Female Surgical History: Hysterectomy Other Surgical History: "throat stretched because i get choked" - Social History Smoking Status: Former smoker How long have you smoked: 50 Exposure to second hand smoke: No Drug Use: none Patient Lives Alone: No - Nursing Vital Signs Nursing Vital Signs: Initial Vital Signs Temperature 98.6 F 10/05/19 17:50 Pulse Rate 91 H 10/05/19 17:50 Respiratory Rate 24 10/05/19 17:50 Blood Pressure 126/69 10/05/19 17:50 O2 Sat by Pulse Oximetry 90 L 10/05/19 17:50 Pain Scale Pain Intensity 0 - Physical Exam General Appearance: no apparent distress, alert, other (Patient sitting up in bed. She is conversant well-appearing and in no acute distress.) Eye Exam: PERRL/EOMI, eyes nml inspection Ears, Nose, Throat Exam: normal ENT inspection, TMs normal, pharynx normal, moist mucous membranes Neck Exam: normal inspection, non-tender, supple, full range of motion Respiratory Exam: normal breath sounds, lungs clear, diminished breath sounds, No respiratory distress Cardiovascular Exam: regular rate/rhythm, normal heart sounds Gastrointestinal/Abdomen Exam: soft, No tenderness Back Exam: normal inspection, No CVA tenderness, No vertebral tenderness Extremity Exam: normal inspection, normal range of motion Neurologic Exam: alert, oriented x 3, cooperative, normal mood/affect, sensation nml, No motor deficits Skin Exam: normal color, warm, dry, No rash Lymphatic Exam: No adenopathy SpO2 Interpretation: normal SpO2: 97 O2 Delivery: Room Air - Course EKG Interpreted by Me: RATE, NORMAL AXIS, NORMAL INTERVALS - Radiology Exams Chest X-ray Interpretation: Teleradiologist Report (X-ray reveals left basilar atelectasis versus infiltrate.) Ordered Tests: Active Orders 24 hr Category Date Time Status Litigation Examiner STAT Care 10/05/19 18:27 Active EKG-ER Only STAT Care 10/05/19 18:27 Active IV Insertion STAT Care 10/05/19 18:28 Active Oxygen-ED Only Nasal Cannula 2 lpm Care 10/05/19 18:27 Active Pulse Oximetry (ED) STAT Care 10/05/19 18:27 Active CHEST 1 VIEW (PORTABLE) Stat Exams 10/05/19 19:38 Taken CBC W DIFF Stat Lab 10/05/19 19:43 Completed CMP Stat Lab 10/05/19 19:43 Completed UA W/RFX UR CULTURE Stat Lab 10/05/19 21:46 Completed Medication Summary Discontinued Medications Generic Name Dose Route Start Last Admin Trade Name Bin PRN Reason Stop Dose Admin Doxycycline Hyclate Confirm 10/05/19 22:37 Vibramycin 100 Mg Administered 10/05/19 22:38 Dose 100 mg .ROUTE .STK-MED ONE Levofloxacin Confirm 10/05/19 22:39 Levofloxacin 500 Mg Tablet Administered 10/05/19 22:40 Dose 500 mg .ROUTE .STK-MED ONE Levofloxacin 500 mg 10/05/19 22:48 Levofloxacin 250mg Tablet PO 10/05/19 22:49 STAT ONE Lab/Rad Data: Laboratory Result Diagrams 10/05/19 19:43 10/05/19 19:43 Laboratory Results 10/05/19 10/05/19 10/05/19 Range/Units Unknown 21:46 19:43 WBC (4.0-10.5) K/mm3 RBC (4.1-5.4) M/mm3 Hgb (12.0-16.0) gm/dl Hct (35-47) % MCV (78-100) fl MCH (26-32) pg MCHC (32-36) g/dl RDW (11.5-14.0) % Plt Count (150-450) K/mm3 MPV (7.5-11.0) fl Gran % (36.0-66.0) % Eos # (Auto) (0-0.5) Absolute Lymphs (auto) (1.0-4.6) Absolute Monos (auto) (0.0-1.3) Lymphocytes % (24.0-44.0) % Monocytes % (0.0-12.0) % Eosinophils % (0.00-5.0) % Basophils % (0.0-0.4) % Absolute Granulocytes (1.4-6.9) Basophils # (0-0.4) Sodium 139 (137-145) mmol/L Potassium 3.8 (3.5-5.1) mmol/L Chloride 99 (98-107) mmol/L Carbon Dioxide 35 H (22-30) mmol/L Anion Gap 8.9 (5-15) MEQ/L BUN 18 H (7-17) mg/dL Creatinine 0.99 (0.52-1.04) mg/dL Estimated GFR 56.1 ML/MIN Glucose 118 H (74-106) mg/dL Calcium 8.8 (8.4-10.2) mg/dL Total Bilirubin 0.80 (0.2-1.3) mg/dL AST 42 H (14-36) U/L ALT 24 (0-35) U/L Alkaline Phosphatase 92 (38-126) U/L Serum Total Protein 6.8 (6.3-8.2) g/dL Albumin 3.7 (3.5-5.0) g/dL Urine Color YELLOW (YELLOW) Urine Appearance CLEAR (CLEAR) Urine pH 6.0 (5-6) Ur Specific [place]bee 1.008 (1.005-1.025) Urine Protein NEGATIVE (Negative) Urine Ketones NEGATIVE (NEGATIVE) Urine Blood NEGATIVE (0-5) Jostin/ul Urine Nitrite NEGATIVE (NEGATIVE) Urine Bilirubin NEGATIVE (NEGATIVE) Urine Urobilinogen NEGATIVE (0-1) mg/dL Ur Leukocyte Esterase NEGATIVE (NEGATIVE) Urine WBC (Auto) NONE (0-5) /HPF Urine RBC (Auto) NONE (0-2) /HPF U Epithel Cells (Auto) NONE (FEW) /HPF Urine Bacteria (Auto) NONE (NEGATIVE) /HPF Urine Mucus (Auto) SLIGHT (NEGATIVE) /HPF Urine Culture Reflexed NO (NO) Urine Glucose NEGATIVE (NEGATIVE) mg/dL Influenza Type A Ag NEGATIVE (NEGATIVE) Influenza Type B Ag NEGATIVE (NEGATIVE) RSV (PCR) NEGATIVE (Negative) 10/05/19 Range/Units 19:43 WBC 14.1 H (4.0-10.5) K/mm3 RBC 3.70 L (4.1-5.4) M/mm3 Hgb 11.4 L (12.0-16.0) gm/dl Hct 36.9 (35-47) % MCV 99.7 (78-100) fl MCH 30.8 (26-32) pg MCHC 30.9 L (32-36) g/dl RDW 14.5 H (11.5-14.0) % Plt Count 194 (150-450) K/mm3 MPV 9.7 (7.5-11.0) fl Gran % 74.1 H (36.0-66.0) % Eos # (Auto) 0.05 (0-0.5) Absolute Lymphs (auto) 2.46 (1.0-4.6) Absolute Monos (auto) 1.12 (0.0-1.3) Lymphocytes % 17.4 L (24.0-44.0) % Monocytes % 7.9 (0.0-12.0) % Eosinophils % 0.4 (0.00-5.0) % Basophils % 0.2 (0.0-0.4) % Absolute Granulocytes 10.45 H (1.4-6.9) Basophils # 0.03 (0-0.4) Sodium (137-145) mmol/L Potassium (3.5-5.1) mmol/L Chloride (98-107) mmol/L Carbon Dioxide (22-30) mmol/L Anion Gap (5-15) MEQ/L BUN (7-17) mg/dL Creatinine (0.52-1.04) mg/dL Estimated GFR ML/MIN Glucose (74-106) mg/dL Calcium (8.4-10.2) mg/dL Total Bilirubin (0.2-1.3) mg/dL AST (14-36) U/L ALT (0-35) U/L Alkaline Phosphatase (38-126) U/L Serum Total Protein (6.3-8.2) g/dL Albumin (3.5-5.0) g/dL Urine Color (YELLOW) Urine Appearance (CLEAR) Urine pH (5-6) Ur Specific [place]bee (1.005-1.025) Urine Protein (Negative) Urine Ketones (NEGATIVE) Urine Blood (0-5) Jostin/ul Urine Nitrite (NEGATIVE) Urine Bilirubin (NEGATIVE) Urine Urobilinogen (0-1) mg/dL Ur Leukocyte Esterase (NEGATIVE) Urine WBC (Auto) (0-5) /HPF Urine RBC (Auto) (0-2) /HPF U Epithel Cells (Auto) (FEW) /HPF Urine Bacteria (Auto) (NEGATIVE) /HPF Urine Mucus (Auto) (NEGATIVE) /HPF Urine Culture Reflexed (NO) Urine Glucose (NEGATIVE) mg/dL Influenza Type A Ag (NEGATIVE) Influenza Type B Ag (NEGATIVE) RSV (PCR) (Negative) - Progress Progress: improved Air Movement: good Progress Note: 10/05/19 23:10 Patient reassessed. Patient refused admission. Patient states that she had similar symptoms in August. She was treated with Levaquin as an outpatient and did well. Patient wants to do the same. Daughter at bedside. She agrees. Daughter agrees that she will monitor patient at home. Patient's circulatory medication can cross react with Levaquin to cause prolonged QT. They will call patient's workforce development vice president in the morning and see if it is okay to discontinue it temporarily while she is on Levaquin. Patient has no chest pain or shortness of breath. Blood Culture(s) Obtained: No Antibiotics given: Yes Counseled pt/family regarding: lab results, diagnosis, need for follow-up, rad results - Departure Departure Disposition: Home Clinical Impression: Pneumonia Condition: Stable Critical Care Time: No Referrals: JONAS HORTON MD [Primary Care Provider] - Additional Instructions: Discharge/Care Plan ZOYA ARIAS was seen on 10/05/19 in the Emergency Room. The patient was counseled regarding Diagnosis,Lab results, Imaging studies, need for follow up and when to return to the Emergency Room. Prescriptions given: Discharge Note I have spoken with the patient and/or caregivers. I have explained the patient' s condition, diagnosis and treatment plan based on the information available to me at this time. I have answered the patient's and/or caregiver's questions and addressed any concerns. The patient and/or caregivers have as good understanding of the patient's diagnosis, condition and treatment plan as can be expected at this point. The vital signs have been stable. The patient's condition is stable and appropriate for discharge from the emergency department. The patient will pursue further outpatient evaluation with the primary care physician or other designated or consulting physician as outlined in the discharge instructions. The patient and/or caregivers are agreeable to this plan of care and follow-up instructions have been explained in detail. The patient and/or caregivers have received these instruction. The patient/and or caregivers are aware that any significant change in condition or worsening of symptoms should prompt an immediate return to this or the closest emergency department or call 911.
[2019-10-05 23:11] VITALS: BP 126/80; PULSE 80
--- NOTE | 2019-10-06 08:53 | XRAY ---
Indication: Cough. Hypoxia. Comparison: August 17, 2019. Portable chest less inflated with now mild bibasilar infiltrates versus atelectasis. Remaining heart and lungs unremarkable. Comment: Preliminary interpretation was made by [facility]. No critical discrepancy.
== END 2019-10-05 23:23 | disposition home or self-care (01) ==
LOC: ED 17:07
DX: J18.9 Pneumonia, unspecified organism (principal); I10 Essential (primary) hypertension; E78.00 Pure hypercholesterolemia, unspecified; I73.9 Peripheral vascular disease, unspecified; K21.9 Gastro-esophageal reflux disease without esophagitis; F41.9 Anxiety disorder, unspecified; Z79.899 Other long term (current) drug therapy; R53.1 Weakness
CPT/HCPCS: 36000; 36415; 71045; 80053; 81001; 85025; 87631; 93005; 93041; 94760; 99284; A9270-GY